=== PATIENT | female | born 1975 | race Caucasian/White ===

== ENCOUNTER → 2016-06-17 | Outpatient (CLI) | payer BC ==
[~2016-06-17] MED LIST: BREO ELLIPTA 21 EACH IH; MONTELUKAST SOD10 MG PO
== END | disposition home or self-care (01) ==
LOC: CT 13:44
DX: R10.12 Left upper quadrant pain (principal); R22.9 Localized swelling, mass and lump, unspecified

== ENCOUNTER → 2016-06-20 | Day surgery (SDC) | payer BC ==
[2016-06-17 14:48] LABS: BASO % 0.4 % (0.0-1.0); EOS # 0.2 10*3/uL (0.0-0.4); EOS % 2.3 % (1.0-4.0); HEMATOCRIT 39.3 % (37.0-47.0); HEMOGLOBIN 12.8 g/dl (12.0-16.0); LYMPH # 2.6 10*3/uL (1.3-4.4); LYMPH % 25.9 % (27.0-41.0); MEAN CELL VOLUME 90.6 fl (81.0-99.0); MEAN CORPUSCULAR HGB 29.5 pg (27.0-31.0); MEAN CORPUSCULAR HGB CONC 32.6 g/dl (33.0-37.0); MONO # 0.7 10*3/uL (0.1-1.0); MONO % 6.8 % (3.0-9.0); NEUT # 6.4 10*3/uL (2.3-7.9); NEUT % 64.2 % (47.0-73.0); PLATELET COUNT AUTOMATED 324 10*3/uL (130-400); RED BLOOD COUNT 4.34 10*6/uL (4.10-5.10); RED CELL DISTRI WIDTH 13.2 % (0-14.5); WHITE BLOOD COUNT 9.9 10*3/uL (4.8-10.8)
[2016-06-17 14:49] LABS: BILIRUBIN NEGATIVE (NEGATIVE); BLOOD NEGATIVE (NEGATIVE); CLARITY SL CLOUDY (CLEAR); COLOR YELLOW (YELLOW); GLUCOSE NEGATIVE (NEGATIVE); KETONE NEGATIVE (NEGATIVE); LEUKO ESTERASE NEGATIVE (NEGATIVE); NITRITE NEGATIVE (NEGATIVE); PH 8.5 (5.0-9.0); PROTEIN NEGATIVE (NEGATIVE); UROBILINOGEN 0.2 E.U./dl (0.2-1.0)
[2016-06-17 15:01] LABS: BACTERIA 3+; WBC 0-2 wbc/hpf (0-5)
[2016-06-17 15:12] LABS: BUN 10 mg/dl (7-24); CARBON DIOXIDE 28 mmol/L (21-32); CHLORIDE 105 mmol/L (98-107); EST GLOM FILT AFRICAN AMERICAN > 60 ml/min; GLUCOSE 86 mg/dL (65-99); POTASSIUM 4.2 mmol/L (3.5-5.1); SODIUM 140 mmol/L (136-145)
[2016-06-17 15:18] LABS: PROTHROMBIN TIME 10.6 SECONDS (9.0-12.4)
[~2016-06-20] MED LIST changes: +HYDROCODONE BIT1 T11 PO
--- NOTE | ~2016-06-20 | PROC NOTE ---
[place], [place] PROCEDURE NOTE NAME: EDWARD GELLER UNIT #: [id number] ROOM: DOCTOR: TIMOTEO VILLEGAS MD BIRTHDATE: [birth year] DOS: 06/20/2016 PREOPERATIVE DIAGNOSIS: Left upper abdominal wall soft tissue mass. POSTOPERATIVE DIAGNOSIS: Left upper abdominal wall soft tissue mass. PROCEDURE: Excision of left upper abdominal wall soft tissue mass. SURGEON: Dr. Timoteo Villegas. PERFORATOR TYPIST: MS3. ANESTHESIA: MAC with local. INDICATIONS: This is a 41-year-old lady with a symptomatic soft tissue mass in the left upper abdominal wall, who is here for the above-mentioned procedure. The procedure and its complications explained to the patient in detail preoperatively. Complications that were discussed included but were not limited to bleeding, infection, hematoma/seroma/abscess formation, and prolonged pain. She agreed to proceed. DESCRIPTION OF PROCEDURE: After identifying the patient, the patient was brought to the operating suite and laid in the supine position. After IV sedation was administered, a timeout procedure was called and the parts were then painted and draped in the usual sterile fashion. The incision was marked and local anesthesia (1% plain lidocaine) was given in the line of the incision. The incision was made. The soft tissue mass was excised in its entirety with the help of electrocautery and sent for histopathological diagnosis. Thereafter, hemostasis was achieved with the help of electrocautery and saline was used for irrigation. The subcutaneous tissue was approximated with the help of 3-0 Vicryl in an interrupted fashion and the skin edges were approximated with 4-0 Vicryl in a subcuticular running fashion. Dressing was placed. The patient tolerated the procedure well and was taken to the recovery room in stable fashion. There were no complications. Dr. Timoteo Villegas, the attending surgeon, was present throughout the operating case. Timoteo Villegas MD CM:PROCNOTE:PROCEDURE NOTE [id number] TIMOTEO VILLEGAS MD
[2016-06-20 08:30] VITALS: BP 120/74
[2016-06-20 09:10] VITALS: BP 121/38
[2016-06-20 09:25] VITALS: BP 105/59
[2016-06-20 09:40] VITALS: BP 117/61
== END | disposition home or self-care (01) ==
LOC: SDC 06-17 14:00
PROVIDERS: Surgery
DX: D17.1 Benign lipomatous neoplasm of skin and subcutaneous tissue of trunk (principal); J45.909 Unspecified asthma, uncomplicated; K21.9 Gastro-esophageal reflux disease without esophagitis; Z82.49 Family history of ischemic heart disease and other diseases of the circulatory system; Z80.3 Family history of malignant neoplasm of breast

== ENCOUNTER → 2018-12-03 | Outpatient (CLI) | payer BC | END | disposition home or self-care (01) | LOC: LAB 16:29 | DX: R53.83 Other fatigue (principal) ==